=== PATIENT | female | born 1975 | race Native Hawaiian/Other Pacific Islander ===

== ENCOUNTER 2018-07-30 12:56 | Emergency (ER) | payer OTHER ==
[2018-07-30 14:04] LABS: BASO # 0.1 K/uL (0.0-0.2); BASO % 1.3 % (0.0-2.0); EOS # 0.1 K/uL (0.0-0.7); EOS % 1.7 % (0.0-4.0); HEMOGLOBIN 14.3 g/dL (11.0-16.0); LYMPH # 1.7 K/uL (1.0-4.3); LYMPH % 23.5 % (20.0-40.0); MEAN CELL VOLUME 84.5 fL (81.0-99.0); MEAN CORPUSCULAR HEMOGLOBIN 28.2 pg (27.0-31.0); MEAN CORPUSCULAR HGB CONC 33.4 g/dL (33.0-37.0); MEAN PLATELET VOLUME 8.4 fL (7.2-11.7); MONO % 14.4 % (0.0-10.0); NEUT # 4.3 K/uL (1.8-7.0); NEUT % 59.1 % (50.0-75.0); RBC 5.08 Mil/uL (3.80-5.20); RED CELL DISTRIBUTION WIDTH 14.6 % (11.5-14.5); WHITE BLOOD COUNT 7.2 K/uL (4.8-10.8)
[2018-07-30 14:09] LABS: URINE BILIRUBIN NEGATIVE (NEGATIVE); URINE BLOOD 1+ (NEGATIVE); URINE CLARITY Clear (Clear); URINE COLOR Colorless (YELLOW); URINE GLUCOSE (UA) NORMAL (Normal); URINE LEUKOCYTE ESTERASE NEG Leu/uL (Negative); URINE PROTEIN NEGATIVE (NEGATIVE); URINE UROBILINOGEN NORMAL mg/dL (0.2-1.0)
[2018-07-30 14:12] LABS: ALB/GLOB RATIO 1.4 (1.0-2.1); ALBUMIN 4.7 g/dL (3.5-5.0); ALT/SGPT 10 U/L (9-52); AST/SGOT 17 U/L (14-36); BLOOD UREA NITROGEN 11 mg/dL (7-17); CALCIUM 9.6 mg/dl (8.6-10.4); GFR NON-AFRICAN AMERICAN > 60
[2018-07-30 14:24] LABS: CK-MB 0.39 ng/mL (0.0-3.38)
--- NOTE | 2018-07-30 14:25 | C.PDOC ---
History Of Present Illness 42 year old female presents to ED for left sided chest pain x 2 days. Patient describes pain as pressure and reports it radiates to her left upper back. Patient states the pain is associated with occasional mild shortness of breath. Patient denies tobacco use, cough, fever, abdominal pain, rash, injuries, recent air travel, recent surgeries or immobilization. Pain is pleuritic and reproducible. Time Seen by Provider: 07/30/18 13:10 Chief Complaint (Nursing): Chest Pain History Per: Patient History/Exam Limitations: no limitations Onset/Duration Of Symptoms: Days Current Symptoms Are (Timing): Still Present Severity: Mild Quality: Pressure Associated Symptoms: Other (mild shorntess of breath) Recent travel outside of the [place]: No Past Medical History Reviewed: Historical Data, Nursing Documentation, Vital Signs Vital Signs: Last Vital Signs Temp 99.2 F 07/30/18 15:35 Pulse 79 07/30/18 16:27 Resp 19 07/30/18 16:27 BP 112/74 07/30/18 16:27 Pulse Ox 100 07/30/18 16:58 - Medical History PMH: HTN, Hyperlipidemia Surgical History: No Surg Hx Family History: States: No Known Family Hx - Social History Hx Tobacco Use: No Hx Alcohol Use: No Hx Substance Use: No Review Of Systems Constitutional: Negative for: Fever Cardiovascular: Positive for: Chest Pain. Negative for: Palpitations Respiratory: Positive for: Shortness of Breath (mild). Negative for: Cough Gastrointestinal: Negative for: Nausea, Vomiting, Abdominal Pain Skin: Negative for: Rash Neurological: Negative for: Weakness, Numbness Physical Exam - Physical Exam Appears: Well, Non-toxic, No Acute Distress, Other (anxious appearing, in no pain) Skin: Normal Color, Warm, Dry Head: Normacephalic Eye(s): bilateral: Normal Inspection Oral Mucosa: Moist Neck: Supple Chest: Symmetrical, No Tenderness Cardiovascular: Rhythm Regular Respiratory: Normal Breath Sounds, No Rales, No Rhonchi, No Wheezing Gastrointestinal/Abdominal: Normal Exam, Bowel Sounds, Soft, No Tenderness Extremity: Normal ROM, No Pedal Edema, No Calf Tenderness Pulses: Left Dorsalis Pedis: Normal, Right Dorsalis Pedis: Normal Neurological/Psych: Oriented x3 Gait: Steady ED Course And Treatment - Laboratory Results Result Diagrams: 07/30/18 13:54 07/30/18 13:54 ECG: Interpreted By Me, Viewed By Me (NSR 86 bpm, normal axis, no acute ST/T wave changes) ECG Interpretation: Normal Interpretation Of ECG: Normal axis, no acute ST/T wave changes. O2 Sat by Pulse Oximetry: 100 (RA) Pulse Ox Interpretation: Normal Progress Note: Blood work, CXR, EKG, UA, Upreg ordered and reviewed. Patient given PO Naprosyn and Flexeril. Reevaluation Time: 16:55 Reassessment Condition: Improved (Patient reassessed, is resting comfortably, in no pain/distress. Blood work unremarkable including CALVIN x2 and D-dimer. CXR and EKG WNL. Do not suspect cardiac etiology for pain. Patient instructed to follow up with her PMD in 1-2 days, and she understands she should return to ED if her symptoms return/worsen.) Disposition Counseled Patient/Family Regarding: Studies Performed, Diagnosis, Need For Followup, Rx Given - Disposition Referrals: Cabrera Ken MD [Staff Provider] - Godfrey Ken MD [Staff Provider] - Disposition: HOME/ ROUTINE Disposition Time: 16:55 Condition: STABLE Additional Instructions: FOLLOW UP WITH YOUR DOCTOR IN 1-2 DAYS USE MEDICATIONS NEEDED RETURN TO ER IMMEDIATELY IF SYMPTOMS WORSEN Prescriptions: Cyclobenzaprine [Flexeril] 10 mg PO BID PRN #15 tab PRN Reason: Muscle Spasm Naproxen 375 mg PO BID PRN #20 tablet PRN Reason: pain Instructions: Chest Pain That Is Not Caused by the Heart (DC) Forms: [facility] (Sami) Print Language: UKRAINIAN - POA Present On Arrival: None - Clinical Impression Clinical Impression: Non-cardiac chest pain - Scribe Statement The provider has reviewed the documentation as recorded by the Yvon Nj Boby Provider Attestation: All medical record entries made by the Yvon were at my direction and personally dictated by me. I have reviewed the chart and agree that the record accurately reflects my personal performance of the history, physical exam, medical decision making, and the department course for this patient. I have also personally directed, reviewed, and agree with the discharge instructions and disposition.
[2018-07-30 14:29] LABS: HCG,QUALITATIVE URINE NEGATIVE (NEGATIVE)
[2018-07-30 15:36] VITALS: TEMP 99.2
--- NOTE | 2018-07-30 15:44 | RAD ---
HISTORY: cp COMPARISON: Chest x-ray performed 07/30/18 TECHNIQUE: Chest, one view. FINDINGS: LUNGS: No focal consolidation. Please note that chest x-ray has limited sensitivity for the detection of pulmonary masses. PLEURA: No significant pleural effusion identified. No definite pneumothorax . CARDIOVASCULAR: The cardiomediastinal silhouette appears within normal limits of size. OSSEOUS STRUCTURES: No acute osseous abnormality identified. VISUALIZED UPPER ABDOMEN: Unremarkable. OTHER FINDINGS: None. IMPRESSION: No focal consolidation, significant pleural effusion, or definite pneumothorax identified.
[2018-07-30 16:27] VITALS: BP 112/74; PULSE 79; RESP 19
[2018-07-30 16:52] LABS: CK-MB 0.33 ng/mL (0.0-3.38)
[2018-07-30 16:59] VITALS: O2SAT 100
[2018-07-30] MEDS ORDERED: Naproxen 550 mg Tab PO STA (16:59)
[2018-07-30] MEDS ORDERED: Naproxen 550 mg Tab PO ONE (17:10)
== END 2018-07-30 17:13 | disposition home or self-care (01) ==
LOC: C.ER 12:56
DX: R07.89 Other chest pain (principal)